=== PATIENT | female | born 2000 | race Caucasian/White ===

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

== ENCOUNTER 2022-10-06 17:42 | Emergency (ER) | payer MEDICAID ==
[~2022-10-06 17:42] MED LIST changes: +HYDR-700 PO; +NAPR-1071 PO
[2022-10-06 18:02] VITALS: BP 125/76
[2022-10-07] MEDS ORDERED: PROP50TA2 (02:22)
[2022-10-12] MEDS ORDERED: CEPH500T PO (07:17)
== END 2022-10-06 18:38 | disposition other institution (70) ==
LOC: EDUNIT# 17:42 → ER 17:44
DX: O26.892 Other specified pregnancy related conditions, second trimester (principal); R10.9 Unspecified abdominal pain; R11.0 Nausea; R19.7 Diarrhea, unspecified; Z3A.18 18 weeks gestation of pregnancy

== ENCOUNTER 2022-10-07 02:09 | Emergency (ER) | payer MEDICAID ==
[~2022-10-07] VITALS: Ht 162.5 cm; Wt 86.2 kg
[2022-10-07] MEDS ORDERED: PROP50TA2 (02:22)
--- NOTE | 2022-10-07 02:39 | ED Abdominal Pain ---
General Chief Complaint: OB < 20 WEEKS Stated Complaint: ABD PAIN/CRAMPS/NAUSEA 18 WKS PREG Nursing Triage Note: LOWER BACK/ABDOMINAL PAIN/CRAMPING, NAUSEA, 18WEEKS . Source of Information: Patient Exam Limitations: No Limitations History of Present Illness Date Seen by Provider: Oct 07, 2022 Time Seen by Provider: 02:24 Initial Comments Patient is a 22-year-old female who presents to the emergency room with a chief complaint of intermittent severe abdominal cramping onset yesterday morning. She is a G3, P2 approximately 19 weeks and 2 days with an EDC of March 02, 2023. She states she has had a normal so far. Over the last 12 to 24 hours she has had this cramping that comes in waves. She states it is worse than any contraction she has felt before. She has not taken any medication for the pain. She denies any recent illnesses. No dysuria, urgency or frequency. She has a clear whitish vaginal discharge that is not unusual for her. She has had 5 or 6 episodes of diarrhea today. She is nauseous currently. Denies any vaginal bleeding. No complications in her other 2 pregnancies. Both were deliveries. She has a history of thyroid disease. Denies smoking, alcohol. Timing/Duration: 12-24 Hours Severity/Quality: Severe, Cramping Location: Generalized Abdomen Radiation: Back Activities at Onset: None Associated Symptoms: Back Pain, Nausea/Vomiting (nausea without vomiting) Allergies and Home Medications Allergies Coded Allergies: No Known Drug Allergies (Unverified , 12/16/15) Patient Home Medication List Home Medication List Reviewed: Yes Propylthiouracil (Propylthiouracil) 50 Mg Tablet, (Reported) Entered as Reported by: RISSA ALLAN on 10/07/22 0222 Last Action: New Order Discontinued Medications Cephalexin (Cephalexin) 500 Mg Tablet, 500 MG PO TID Discontinued Reason: No Longer Taking Prescribed by: TANIKA ELIZALDE on 11/06/21 1937 Last Action: Discontinued Docusate Sodium (Docu Liquid) 50 Mg/5 Ml Liquid, 100 MG PO BID Discontinued Reason: No Longer Taking Prescribed by: GO LUGO on 10/22/21 1252 Last Action: Discontinued Famotidine (Pepcid) 20 Mg Tablet, 20 MG PO BID Discontinued Reason: No Longer Taking Prescribed by: TANIKA ELIZALDE on 11/06/211936 Last Action: Discontinued Hydroxyzine HCl (Hydroxyzine HCl) 25 Mg Tablet, 25 MG PO Q6H PRN for ANXIETY Discontinued Reason: No Longer Taking Prescribed by: ISAMAR PADRON on 12/17/2144 Last Action: Discontinued Ibuprofen (Ibuprofen) 100 Mg/5 Ml Oral.susp, 800 MG PO Q6H Discontinued Reason: No Longer Taking Prescribed by: GO LUGO on 10/22/21 1252 Last Action: Discontinued Naproxen (Naprosyn) 500 Mg Tablet, 500 MG PO BID Discontinued Reason: No Longer Taking Prescribed by: ISAMAR PADRON on 12/17/2144 Last Action: Discontinued Ondansetron (Ondansetron Odt) 4 Mg Tab.rapdis, 4 MG SL Q4H PRN for NAUSEA/VOMITING Discontinued Reason: No Longer Taking Prescribed by: TANIKA ELIZALDE on 11/06/211936 Last Action: Discontinued Oxycodone HCl (Oxycodone HCl) 5 Mg/5 Ml Solution, 10 MG PO Q4H PRN for PAIN-SEE DOSE INSTRUCTIONS Discontinued Reason: No Longer Taking Prescribed by: GO LUGO on 10/22/21 1254 Last Action: Discontinued Gyu065/Iron Fumarate/FA/Dss ( 19 Tablet) 1 Each Tablet, 1 EACH PO DAILY, (Reported) Discontinued Reason: No Longer Taking Entered as Reported by: KRISTI AQUINO on 06/15/17 0647 Last Action: Discontinued Review of Systems Review of Systems Constitutional: see HPI Respiratory: No Symptoms Reported Cardiovascular: No Symptoms Reported Gastrointestinal: Abdominal Pain, Nausea Genitourinary: Discharge ("clear whitish") Musculoskeletal: back pain Skin: no symptoms reported Psychiatric/Neurological: No Symptoms Reported All Other Systems Reviewed Negative Unless Noted: Yes Past Glkrduw-Vmdkgd-Bxgvwv Hx Patient Social History Tobacco Use?: No Substance use?: No Alcohol Use?: No Pt feels they are or have been: No Immunizations Up To Date Tetanus Booster (TDap): Less than 5yrs PED Vaccines UTD: Yes First/Initial COVID19 Vaccinat: NA Seasonal Allergies Seasonal Allergies: No Past Medical History Surgery/Hospitalization HX: HX, OVER REACTIVE THYROID, ANXIETY Surgeries: Yes ( X 1) Section Respiratory: No Cardiac: No Neurological: No Last Menstrual Period: Jun 03, 2022 Reproductive Disorders: No Female Reproductive Disorders: Denies Sexually Transmitted Disease: No HIV/AIDS: No Genitourinary: No Gastrointestinal: No Musculoskeletal: No Endocrine: Yes Hyperthyroidism HEENT: No Cancer: No Psychosocial: Yes Anxiety Integumentary: No Blood Disorders: No Adverse Reaction/Blood Tranf: No Family Medical History No Pertinent Family Hx Physical Exam Vital Signs Vital Signs - First Documented 10/07/22 02:17 Temp 37.9 Pulse 99 Resp 16 B/P (MAP) 127/77 (94) Pulse Ox 99 O2 Delivery Room Air Capillary Refill : Less Than 3 Seconds Height/Weight/BMI Height: 5'4.00" Weight: 169lbs. 0.0oz. 76.378918ot; 32.00 BMI Method:Stated General Appearance: WD/WN, mild distress (due to abdominal pain) HEENT: PERRL/EOMI Respiratory: lungs clear, normal breath sounds, no respiratory distress, no accessory muscle use Cardiovascular: regular rate, rhythm Gastrointestinal: normal bowel sounds, soft, tenderness (mild lower abdominal tenderness to palpation; no rebound; + vol guarding) Extremities: normal range of motion, normal inspection Neurologic/Psychiatric: alert, oriented x 3, other (anxious) Skin: normal color, warm/dry Progress/Results/Core Measures Results/Orders Lab Results Laboratory Tests Test 10/07/22 02:21 10/07/22 02:39 Range/Units Urine Color YELLOW Urine Clarity CLEAR Urine pH 6.0 5-9 Urine Specific [place] 1.015 L 1.016-1.022 Urine Protein NEGATIVE NEGATIVE Urine Glucose (UA) NEGATIVE NEGATIVE Urine Ketones NEGATIVE NEGATIVE Urine Nitrite NEGATIVE NEGATIVE Urine Bilirubin NEGATIVE NEGATIVE Urine Urobilinogen 0.2 < = 1.0 MG/DL Urine Leukocyte Esterase NEGATIVE NEGATIVE Urine RBC (Auto) NEGATIVE NEGATIVE Urine RBC NONE /HPF Urine WBC NONE /HPF Urine Squamous Epithelial Cells 0-2 /HPF Urine Crystals NONE /LPF Urine Bacteria TRACE /HPF Urine Casts NONE /LPF Urine Mucus NEGATIVE /LPF Urine Culture Indicated NO Sodium Level 135 135-145 MMOL/L Potassium Level 3.6 3.6-5.0 MMOL/L Chloride Level 110 H 98-107 MMOL/L Carbon Dioxide Level 18 L 21-32 MMOL/L Anion Gap 7 5-14 MMOL/L Blood Urea Nitrogen 7 7-18 MG/DL Creatinine 0.52 L 0.60-1.30 MG/DL Estimat Glomerular Filtration Rate 136 BUN/Creatinine Ratio 13 Glucose Level 107 H 70-105 MG/DL Calcium Level 8.9 8.5-10.1 MG/DL My Orders Orders - PEYTON JOHNSON MD Ed Iv/Invasive Line Start (10/07/22 02:33) Basic Metabolic Panel (10/07/22 02:33) Ua Culture If Indicated (10/07/22 02:33) Lactated Ringers (Lr 1000 Ml Iv Solution (10/07/22 02:45) Ondansetron Injection (Zofran Injectio (10/07/22 02:45) Acetaminophen Oral Solution (Tylenol Ora (10/07/22 03:15) Rx-Ondansetron Po (Rx-Zofran Po) (10/07/22 03:53) Medications Given in ED Vital Signs/I&O 10/07/22 10/07/22 10/07/22 02:17 03:16 04:01 Temp 37.9 37.9 37.5 Pulse 99 89 Resp 16 16 B/P (MAP) 127/77 (94) 122/79 Pulse Ox 99 100 O2 Delivery Room Air Room Air Blood Pressure Mean: 94 Progress Progress Note #1: Time: 02:36 Progress Note POC bedside U/S shows good FHT and positive movement Progress Note #2: Time: 03:36 Progress Note Patient seen and examined by me. Evaluation today includes physical exam, basic metabolic panel, urinalysis, epwpc-bw-bzff bedside ultrasound to evaluate cardiac activity and motion. Pertinent physical exam findings well-developed well-nourished female mild distress due to ongoing abdominal pain. Abdomen is mildly tender in the suprapubic infraumbilical region. Otherwise soft. Normal bowel sounds. Heart is regular, lungs are clear. No lower extremity edema or calf tenderness. Differential diagnosis based on history and physical exam, premature labor/miscarriage/urinary tract infection/dehydration. Labs independently reviewed and interpreted by me. Basic metabolic panel is actually within normal limits. Urinalysis is negative for any signs of infection or blood. Revcd-zc-waxf ultrasound at the bedside showed normal cardiac activity and motion. Patient is treated with lactated Ringer's and Zofran. She is also given 650 mg of Tylenol liquid. She is completely asymptomatic at discharge. She feels 100% better. I encouraged the patient to drink plenty of fluids. We will give her some ODT Zofran for home. Recommended she call Dr. Palomares's office today and return precautions were given. She verbalized understanding of the plan of care all questions are sought and answ ered. Patient is improved at discharge. Departure Impression Primary Impression: Abdominal pain affecting Additional Impression: 19 weeks gestation of Disposition: HOME, SELF-CARE Condition: Stable Departure-Patient Inst. Decision time for Depature: 03:35 Referrals: [facility] (PCP/Family) Primary Care Physician NATALIA PALOMARES DO Patient Instructions: - The Fifth Month Add. Discharge Instructions: You can take gywa-vdr-rblzvme Tylenol 650 mg every 6 hours as needed for abd ominal cramping/pain. Be sure and drink lots of fluids to stay well-hydrated. Ondansetron 4 mg orally disintegrating tablets, take 1 every 8 hours as needed for nausea. If you develop worsening pain especially with vaginal bleeding please come back to the emergency department for reevaluation. Please call Dr. Palomares's office today and let him know you are in the emergency department and follow-up as directed. Copy Copies To 1: NATALIA PALOMARES DO Copies To 2: INEZ BRITTON KATHRYN M MD Oct 07, 2022 02:39
[2022-10-07] MEDS ORDERED: ONDANSETRON 4 MG/2 ML (SDV) Z0FRAN IVP ONE (02:45)
[2022-10-07] MEDS ORDERED: LACTATED RINGERS 1,000 ML IV SCH (02:45)
[2022-10-07 02:50] LABS: BILIRUBIN,URINE NEGATIVE (NEGATIVE); CLARITY,URINE CLEAR; COLOR,URINE YELLOW; GLUCOSE, URINE (UA) NEGATIVE (NEGATIVE); KETONES,URINE NEGATIVE (NEGATIVE); LEUKOCYTE ESTERASE ,URINE NEGATIVE (NEGATIVE); NITRITE,URINE NEGATIVE (NEGATIVE); PROTEIN,URINE NEGATIVE (NEGATIVE)
[2022-10-07 02:56] LABS: BACTERIA,URINE TRACE /HPF; SQUAMOUS EPITHELIAL CELL,UR 0-2 /HPF
[2022-10-07 03:00] LABS: POTASSIUM 3.6 MMOL/L (3.6-5.0)
[2022-10-07 03:02] LABS: CALCIUM 8.9 MG/DL (8.5-10.1)
[2022-10-07 03:06] LABS: CREATININE SERUM 0.52 MG/DL (0.60-1.30)
[2022-10-07] MEDS ORDERED: APAP 325 MG/10.15 ML LIQ (TYLENOL) UDC PO ONE (03:15)
[2022-10-07] MEDS ORDERED: RX-ONDANSETRON 4 MG ODT (ZOFRAN) PPK #4 PO STA (03:53)
[2022-10-07 04:01] VITALS: BP 122/79
[2022-10-12] MEDS ORDERED: CEPH500T PO (07:17)
== END 2022-10-07 04:01 | disposition home or self-care (01) ==
LOC: EDUNIT# 02:09 → ER 02:11
DX: O26.892 Other specified pregnancy related conditions, second trimester (principal); R10.84 Generalized abdominal pain; Z28.310 Unvaccinated for COVID-19; Z3A.19 19 weeks gestation of pregnancy
CPT/HCPCS: 36415; 80048; 81000

== ENCOUNTER 2022-10-08 11:00 | Emergency (ER) | payer MEDICAID ==
[~2022-10-08 11:00] MED LIST changes: +PROP50TA2
[2022-10-08] MEDS ORDERED: NS IV 1000 ML 1,000 ML IV STA ×2 (11:33→12:41)
--- NOTE | 2022-10-08 11:38 | ED Abdominal Pain ---
General Chief Complaint: Abdominal/GI Problems Stated Complaint: PANIC ATTACK | ABD CRAMPING Nursing Triage Note: PT AMB TO TRIAGE, PT STATES IS ANXIOUS BECAUSE HAVING ABD CRAMPING AND DIARRHEA. PT STATES IS 18 WEEKS . PT WAS SEEN IN ED THIS WEEK FOR SAME C/O. STATES HAS NOT GOTTEN ANY BETTER Source of Information: Patient Exam Limitations: No Limitations History of Present Illness Date Seen by Provider: Oct 08, 2022 Time Seen by Provider: 11:35 Initial Comments Patient is a 22-year-old female who is G3, P2 who presents the ED for severe lower abdominal cramping for the past 3 days. Pain is intermittent. Located in lower abdomen. Intermittent sharp pain without radiation. Nausea without vomiting. She did have diarrhea 3 days ago but that has decreased. Denies any blood or mucousy stool. Denies of any pain with urination frequent urination or vaginal bleeding. She currently follows Dr. Palomares. History of C-sections with prior deliveries. She denies of any vaginal discharge. Patient was seen yesterday had reassuring lab work received a liter of fluid with some improvement. She took a Tylenol yesterday but none today. Currently on prenatals. No complications with her previous . She has a history of thyroid disease. She denies fever, chills, chest pain, headache, dizziness, visual changes, cough, shortness of breath, vaginal discharge, concern for sexual transit infections. Allergies and Home Medications Allergies Coded Allergies: No Known Drug Allergies (Unverified , 12/16/15) Patient Home Medication List Home Medication List Reviewed: Yes Propylthiouracil (Propylthiouracil) 50 Mg Tablet, (Reported) Entered as Reported by: RISSA ALLAN on 10/07/222 Discontinued Medications Cephalexin (Cephalexin) 500 Mg Tablet, 500 MG PO TID Discontinued Reason: No Longer Taking Prescribed by: TANIKA ELIZALDE on 11/06/211936 Docusate Sodium (Docu Liquid) 50 Mg/5 Ml Liquid, 100 MG PO BID Discontinued Reason: No Longer Taking Prescribed by: GO LUGO on 10/22/21 1252 Famotidine (Pepcid) 20 Mg Tablet, 20 MG PO BID Discontinued Reason: No Longer Taking Prescribed by: TANIKA ELIZALDE on 11/06/211936 Hydroxyzine HCl (Hydroxyzine HCl) 25 Mg Tablet, 25 MG PO Q6H PRN for ANXIETY Discontinued Reason: No Longer Taking Prescribed by: ISAMAR PADRON on 12/17/21 0644 Ibuprofen (Ibuprofen) 100 Mg/5 Ml Oral.susp, 800 MG PO Q6H Discontinued Reason: No Longer Taking Prescribed by: GO LUGO on 10/22/21 1252 Naproxen (Naprosyn) 500 Mg Tablet, 500 MG PO BID Discontinued Reason: No Longer Taking Prescribed by: ISAMAR PADRON on 12/17/21 0644 Ondansetron (Ondansetron Odt) 4 Mg Tab.rapdis, 4 MG SL Q4H PRN for NAUSEA/VOMITING Discontinued Reason: No Longer Taking Prescribed by: TANIKA ELIZALDE on 11/06/21 193 Oxycodone HCl (Oxycodone HCl) 5 Mg/5 Ml Solution, 10 MG PO Q4H PRN for PAIN-SEE DOSE INSTRUCTIONS Discontinued Reason: No Longer Taking Prescribed by: GO LUGO on 10/22/21 1254 Oqn164/Iron Fumarate/FA/Dss ( 19 Tablet) 1 Each Tablet, 1 EACH PO DAILY, (Reported) Discontinued Reason: No Longer Taking Entered as Reported by: KRISTI AQUINO on 06/15/17 0647 Review of Systems Review of Systems Constitutional: No chills, No diaphoresis, No dizziness, No fever, No malaise, No weakness EENTM: No Double Vision, No Eye Pain Respiratory: Denies Cough, Denies Shortness of Air, Denies SOA at Rest Cardiovascular: Denies Chest Pain Gastrointestinal: Abdominal Pain, Diarrhea, Nausea; Denies Vomiting Genitourinary: Denies Discharge Musculoskeletal: No back pain, No joint pain, No joint swelling, No muscle pain, No muscle stiffness Skin: No change in color, No change in hair/nails All Other Systems Reviewed Negative Unless Noted: Yes Past Wuctcxf-Yokkxw-Eullgb Hx Patient Social History Tobacco Use?: No Substance use?: No Alcohol Use?: No Pt feels they are or have been: No Immunizations Up To Date Tetanus Booster (TDap): Less than 5yrs PED Vaccines UTD: Yes First/Initial COVID19 Vaccinat: NA Second COVID19 Vaccination Too: NA Third COVID19 Vaccination Date: NA Seasonal Allergies Seasonal Allergies: No Past Medical History Surgery/Hospitalization HX: HX, OVER REACTIVE THYROID, ANXIETY Surgeries: Yes ( X 1) Section Respiratory: No Cardiac: No Neurological: No Expected Date of Delivery: Mar 02, 2023 Reproductive Disorders: No Female Reproductive Disorders: Denies Sexually Transmitted Disease: No HIV/AIDS: No Genitourinary: No Gastrointestinal: No Musculoskeletal: No Endocrine: Yes Hyperthyroidism HEENT: No Cancer: No Psychosocial: Yes Anxiety Integumentary: No Blood Disorders: No Adverse Reaction/Blood Tranf: No Family Medical History No Pertinent Family Hx Physical Exam Vital Signs Vital Signs - First Documented 10/08/22 11:10 Pulse 127 Resp 16 B/P (MAP) 117/70 (86) Pulse Ox 98 Capillary Refill : Less Than 3 Seconds Height/Weight/BMI Height: 5'4.00" Weight: 169lbs. 0.0oz. 76.117196lg; 32.00 BMI Method:Stated General Appearance: WD/WN, no apparent distress HEENT: PERRL/EOMI, normal ENT inspection, TMs normal, pharynx normal Neck: non-tender, full range of motion, supple Respiratory: chest non-tender, lungs clear, normal breath sounds, no respiratory distress, no accessory muscle use Cardiovascular: regular rate, rhythm, no edema, no gallop, no JVD Gastrointestinal: normal bowel sounds, soft, no organomegaly, tenderness (Suprapubic, umbilicus tenderness. 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, no motor/sensory deficits, alert, normal mood/affect, oriented x 3 Skin: normal color Progress/Results/Core Measures Results/Orders Lab Results Laboratory Tests Test 10/08/22 11:30 10/08/22 11:45 Range/Units White Blood Count 8.6 4.3-11.0 10^3/uL Red Blood Count 4.26 3.80-5.11 10^6/uL Hemoglobin 12.6 11.5-16.0 g/dL Hematocrit 37 35-52 % Mean Corpuscular Volume 88 80-99 fL Mean Corpuscular Hemoglobin 30 25-34 pg Mean Corpuscular Hemoglobin Concent 34 32-36 g/dL Red Cell Distribution Width 13.4 10.0-14.5 % Platelet Count 185 130-400 10^3/uL Mean Platelet Volume 12.4 H 9.0-12.2 fL Immature Granulocyte % (Auto) 0 % Neutrophils (%) (Auto) 73 42-75 % Lymphocytes (%) (Auto) 16 12-44 % Monocytes (%) (Auto) 10 0-12 % Eosinophils (%) (Auto) 1 0-10 % Basophils (%) (Auto) 0 0-10 % Neutrophils # (Auto) 6.3 1.8-7.8 10^3/uL Lymphocytes # (Auto) 1.4 1.0-4.0 10^3/uL Monocytes # (Auto) 0.8 0.0-1.0 10^3/uL Eosinophils # (Auto) 0.0 0.0-0.3 10^3/uL Basophils # (Auto) 0.0 0.0-0.1 10^3/uL Immature Granulocyte # (Auto) 0.0 0.0-0.1 10^3/uL Sodium Level 139 135-145 MMOL/L Potassium Level 4.1 3.6-5.0 MMOL/L Chloride Level 110 H 98-107 MMOL/L Carbon Dioxide Level 20 L 21-32 MMOL/L Anion Gap 9 5-14 MMOL/L Blood Urea Nitrogen 8 7-18 MG/DL Creatinine 0.62 0.60-1.30 MG/DL Estimat Glomerular Filtration Rate 131 BUN/Creatinine Ratio 13 Glucose Level 105 70-105 MG/DL Calcium Level 8.8 8.5-10.1 MG/DL Corrected Calcium 9.2 8.5-10.1 MG/DL Total Bilirubin 0.4 0.1-1.0 MG/DL Aspartate Amino Transf (AST/SGOT) 15 5-34 U/L Alanine Aminotransferase (ALT/SGPT) 10 0-55 U/L Alkaline Phosphatase 87 40-136 U/L Total Protein 6.9 6.4-8.2 GM/DL Albumin 3.5 3.2-4.5 GM/DL Lipase 18 8-78 U/L Human Chorionic Gonadotropin, Quant 80754 H <5 MIU/ML Urine Color YELLOW Urine Clarity CLEAR Urine pH 6.5 5-9 Urine Specific [place] 1.025 H 1.016-1.022 Urine Protein 2+ H NEGATIVE Urine Glucose (UA) NEGATIVE NEGATIVE Urine Ketones TRACE H NEGATIVE Urine Nitrite NEGATIVE NEGATIVE Urine Bilirubin 1+ H NEGATIVE Urine Urobilinogen 2.0 < = 1.0 MG/DL Urine Leukocyte Esterase NEGATIVE NEGATIVE Urine RBC (Auto) NEGATIVE NEGATIVE Urine RBC NONE /HPF Urine WBC 2-5 /HPF Urine Squamous Epithelial Cells 2-5 /HPF Urine Crystals NONE /LPF Urine Bacteria MODERATE H /HPF Urine Casts NONE /LPF Urine Mucus MODERATE H /LPF Urine Culture Indicated YES My Orders Orders - LISA MAJANO Cbc With Automated Diff (10/08/22 11:33) Comprehensive Metabolic Panel (10/08/22 11:33) Hcg,Quantitative (10/08/22 11:33) Ua Culture If Indicated (10/08/22 11:33) Ns Iv 1000 Ml (Sodium Chloride 0.9%) (10/08/22 11:33) Lipase (10/08/22 11:33) Acetaminophen Tablet/Caplet (Tylenol T (10/08/22 11:45) Limited [id number] (10/08/22 11:33) Urine Culture (10/08/22 11:45) Ns Iv 1000 Ml (Sodium Chloride 0.9%) (10/08/22 12:41) Vital Signs/I&O 10/08/22 11:10 Pulse 127 Resp 16 B/P (MAP) 117/70 (86) Pulse Ox 98 Blood Pressure Mean: 86 Departure Communication (PCP) Reviewed previous ER visits, H&P, lab testing. Differential diagnosis of gastr oenteritis, round ligament pain, premature labor. Patient is a 22-year-old female who is concern for lower abdominal cramping and diarrhea. Diarrhea and cramping started 3 days ago. Diarrhea is starting to subside. Denies any bloody mucousy stool. No urinary symptoms or vaginal bleeding. Currently follows Dr. Palomares. She was seen here yesterday reassuring lab work received fluid. She was discharged felt a little better but continued having abdominal cramping. Bedside ultrasound was unremarkable at that time yesterday. Patient vital signs stable on arrival. She is afebrile. She is not hypertensive. Denies history of diabetes. No visual changes or headache. CBC, CMP, lipase, urinalysis and started on a liter of fluid. CBC, CMP grossly unremarkable. Normal lipase. Urinalysis without evidence of infection. She does appear dry. She did receive a second liter of fluid. BNP 20,000. She did receive Tylenol with improvement abdominal cramping. Formal ultrasound was ordered which showed a single live intrauterine is in breech position. Placenta is anterior position there is no previa. heart rate 156 bpm. Otherwise grossly unremarkable. Reassured patient. She is afebrile with normal white blood count, I do not suspect surgical abdomen. Reassessed the abdomen without any localized tenderness. She is more comfortable at this time. Discussed potential etiologies such as round ligament pain, GI infection with the cramping and diarrhea. She has no flank tenderness. No strong evidence of hematuria in her urine suggesting stone. No right lower quadrant or right upper quadrant tenderness suggesting appendicitis or cholecystitis. Recommend clear liquids. Continue with Tylenol. 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 Patient denies any vaginal discharge. Not concern for STD. Impression Primary Impression: Abdominal pain during Disposition: 01 HOME, SELF-CARE Condition: Stable Departure-Patient Inst. Decision time for Depature: 12:42 Referrals: [facility] (PCP/Family) Primary Care Physician NATALIA PALOMARES DO Patient Instructions: Stomach Pain in Early LISA MAJANO Oct 08, 2022 11:38
[2022-10-08 11:40] LABS: BASOPHILS % (AUTO) 0 % (0-10); EOSINOPHILS % (AUTO) 1 % (0-10); HEMATOCRIT 37 % (35-52); HEMOGLOBIN 12.6 g/dL (11.5-16.0); LYMPHOCYTES # (AUTO) 1.4 10^3/uL (1.0-4.0); LYMPHOCYTES % (AUTO) 16 % (12-44); MEAN CORPUSCULAR HEMOGLOBIN 30 pg (25-34); MEAN CORPUSCULAR HGB CONC 34 g/dL (32-36); MEAN CORPUSCULAR VOLUME 88 fL (80-99); MEAN PLATELET VOLUME 12.4 fL (9.0-12.2); MONOCYTES # (AUTO) 0.8 10^3/uL (0.0-1.0); MONOCYTES % (AUTO) 10 % (0-12); NEUTROPHILS # (AUTO) 6.3 10^3/uL (1.8-7.8); NEUTROPHILS % (AUTO) 73 % (42-75); PLATELET COUNT 185 10^3/uL (130-400); WHITE BLOOD COUNT 8.6 10^3/uL (4.3-11.0)
[2022-10-08] MEDS: ACETAMINOPHEN 325 MG TABLET PO ONE ×2 (11:41→11:44)
[2022-10-08 11:42] LABS: ALBUMIN 3.5 GM/DL (3.2-4.5); POTASSIUM 4.1 MMOL/L (3.6-5.0)
[2022-10-08 11:43] LABS: CALCIUM 8.8 MG/DL (8.5-10.1)
[2022-10-08 11:44] LABS: TOTAL PROTEIN 6.9 GM/DL (6.4-8.2)
[2022-10-08 11:46] LABS: BILIRUBIN,TOTAL 0.4 MG/DL (0.1-1.0)
[2022-10-08 11:48] LABS: CREATININE SERUM 0.62 MG/DL (0.60-1.30)
[2022-10-08 11:56] LABS: CLARITY,URINE CLEAR; COLOR,URINE YELLOW; GLUCOSE, URINE (UA) NEGATIVE (NEGATIVE); KETONES,URINE TRACE (NEGATIVE); LEUKOCYTE ESTERASE ,URINE NEGATIVE (NEGATIVE); NITRITE,URINE NEGATIVE (NEGATIVE); PH,URINE 6.5 (5-9); PROTEIN,URINE 2+ (NEGATIVE)
[2022-10-08 12:11] LABS: BACTERIA,URINE MODERATE /HPF
[2022-10-08 12:12] LABS: BILIRUBIN,URINE 1+ (NEGATIVE)
--- NOTE | 2022-10-08 12:35 | Diagnostic Imaging Report ---
US LIMITED [id number] INDICATION: Pelvic pain during COMPARISON: None available. TECHNIQUE: Transabdominal sonographic imaging of the gravid uterus FINDINGS: Single live intrauterine is in breech presentation. Placenta is anterior position and there is no previa. heart rate is 156 bpm. The ULISES is normal at 12.3 cm. The cervix measures 4.8 cm in length. biometric data was not obtained on this exam. Maternal adnexa were not imaged. IMPRESSION: Single live intrauterine . Dictated by: Dictated on workstation # [id number]
[2022-10-08 13:27] VITALS: BP 117/70
[2022-10-12] MEDS ORDERED: CEPH500T PO (07:17)
== END 2022-10-08 13:28 | disposition home or self-care (01) ==
LOC: EDUNIT# 11:00 → ER 11:02
DX: O26.892 Other specified pregnancy related conditions, second trimester (principal); R10.33 Periumbilical pain; R19.7 Diarrhea, unspecified; Z3A.18 18 weeks gestation of pregnancy
CPT/HCPCS: 36415; 76815; 80053; 81000; 83690; 84702; 85025; 87077; 87088

== ENCOUNTER → 2022-10-18 | Outpatient (CLI) | payer MEDICAID ==
--- NOTE | 2022-10-18 17:17 | Diagnostic Imaging Report ---
INDICATION: Anatomy survey. Supervision of normal . TECHNIQUE: Multiple real-time grayscale images were obtained over the gravid uterus. COMPARISON: 10/08/2022. FINDINGS: A single live intrauterine gestation is present in cephalic presentation. Measurements provided below correspond with an estimated gestational age of 19 weeks 0 days and RASHI of 03/14/2023. heart rate is 149 BPM. ULISES is 10.3 cm. The placenta is anterior and not low lying. The cervix is closed and measures 4.9 cm in length. The kidneys, bladder, stomach, brain, four-chamber heart, three-vessel cord, spine, and cord insertion are visualized and have a normal appearance. Views of the bilateral adnexa demonstrate no acute abnormalities. Biometrical measurements are as follows: Biparietal 4.23 cm, age 18 weeks 6 days. Head circumference 16.31 cm, age 19 weeks 1 days. Abdominal circumference 13.78 cm, age 19 weeks 2 days. Femur length 2.81 cm, age 18 weeks 5 days. Sonographic estimate age: 19 weeks 0 days. Sonographic estimated date of delivery: 03/14/2023. Estimated Weight: 265 gm (+/- 39 gm). LMP percentile: 11%. heart rate: 149 beats per minute. number: 1 of 1. IMPRESSION: 1. Single live intrauterine gestation measuring 19 weeks 0 days with an estimated due date of 03/14/2023. These are within range with the clinical dates. 2. No anatomic abnormalities are identified on this exam. Recommend continued follow-up as indicated. Dictated by: Dictated on workstation # [id number]
== END ==
LOC: RAD 14:41
PROVIDERS: ATTEND Nurse Practitioner Women's Health
DX: Z34.92 Encounter for supervision of normal pregnancy, unspecified, second trimester (principal); Z3A.19 19 weeks gestation of pregnancy
CPT/HCPCS: 76805

== ENCOUNTER 2023-02-23 05:26 | Outpatient (CLI) | payer MEDICAID ==
[~2023-02-23] VITALS: Ht 160 cm; Wt 93.2 kg
[2023-02-23] MEDS ORDERED: PNV-9 PO (16:17)
[2023-02-23] MEDS ORDERED: METH5TAB95 PO (16:17)
[2023-03-02] MEDS ORDERED: IBUP-844 PO (07:20)
[2023-03-02] MEDS ORDERED: DOCU100C37 PO (07:20)
[2023-03-02] MEDS ORDERED: ACHD5005 PO (07:20)
[2023-03-03] MEDS ORDERED: IBP100U5 PO (08:34)
[2023-03-03] MEDS ORDERED: HYDR15SO6 PO (08:34)
[2023-03-03] MEDS ORDERED: FERR220S8 PO ×2 (08:35→08:59)
== END 2023-02-23 16:35 | disposition home or self-care (01) ==
LOC: PREOP 05:26
PROVIDERS: ATTEND Obstetrics & Gynecology
DX: Z01.818 Encounter for other preprocedural examination (principal)

== ENCOUNTER 2023-03-02 05:44 | Inpatient (IN) | payer MEDICAID ==
[~2023-03-02] VITALS: Ht 160 cm; Wt 94.3 kg
[2023-03-02] VITALS (9 sets, daily range): BP systolic 110–140; BP diastolic 45–79
[~2023-03-02 05:44] MED LIST changes: +METH5TAB95 PO; +PNV-9 PO
--- OUTSIDE RECORDS SUMMARY | 2023-03-02 05:47 | XMS REPORT ---
Author Author [facility] ter of [facility] Address Unknown Phone Unavailable Care Team Providers Care Recruiting Coordinator Name Role Phone KERI CULVER Unavailable PROBLEMS Type Condition ICD9-CM Code [id number] Code Onset Dates Condition Status W/U Status Risk SNOMED Code Notes Problem Separation anxiety F93.0 confirmed 909288231 Problem ADHD (attention deficit hyperactivity disorder), combined type F90.2 confirmed 45430018 Problem Seasonal allergies J30.2 confirmed 937515476 Problem Thyroid nodule E04.1 confirmed 348259783 Problem DMDD (disruptive mood dysregulation disorder) F34.81 confirmed 623046788 Problem Hyperthyroidi sm E05.90 confirmed 09514415 Problem Irregular periods N92.6 confirmed 07502449 Problem 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 confirmed 501106098 Problem JORDAN (generalized anxiety disorder) F41.1 confirmed 68982750 Problem Mild episode of recurrent major depressive disorder F33.0 confirmed 141457952 Problem Spotting N92.0 confirmed 9126066 ALLERGIES No Known Allergies ENCOUNTERS from 2002 to 2022-09-13 Encounter Location Date Provider Diagnosis [facility] [address] [facility] [id number] [address] Sep, KERI CULVER IMMUNIZATIONS Vaccine Route Administration Date Status PRIVATE TDAP (BOOSTRIX) IM Intramuscular Mar 19, 2015 Administered SOCIAL HISTORY Sex Assigned At : Social History Observation Description Sex Assigned At Unknown Alcohol Screen (Audit-C) Question Answer Notes Did you have a drink containing alcohol in the p ast year? No Points 0 Interpretation Negative PHQ2 Question Answer Notes In the last 2 weeks, how oft en have you had little interest or pleasure in doing things? Not at all In the last 2 weeks, how oft en have you been feeling down, depressed, or hopeless? Not at all Total PHQ2 Score 0 REASON FOR REFERRAL No Information MEDICATIONS Medication SIG (Take, Route, Frequency, Duration) Notes Start Date End Date Status methIMAzole 10 MG 1 1/2 tablets Orally Once a day 20mg Active Lidocaine 5 % 1 patch remove after 12 hours Externally Once a day for 5 days Jan, Active Nitrofurantoin Monohyd Macro 100 MG 1 capsule with food Orally every 12 hrs for 5 days Jan, Active Blood Pressure Monitor - as directed Oct, Active REASON FOR VISIT *Requests return call MEDICAL (GENERAL) HISTORY Type Description Date Medical History hx of MRSA Medical History Blue baby - cord criss und her neck. It took a few mintues to get her to cry Medical History anxiety Surgical History I-D MRSA abcess Surgical History 07/21/2017 Hospitalization History post childbirtrh 07/2017 MENTAL STATUS No Information PLAN OF TREATMENT Medication Medication Name Sig Start Date Stop Date Lidocaine 5 % 1 patch remove after 12 hours Externally Once a day for 5 days Jan, Insurance Providers Payer Name Payer Address Payer Phone Insured Name Patient Relationship to Insured Coverage Start Date Coverage End Date Subscriber Number Group Number [employer] [address] [facility] [address] Maki Ricardo Self - patient is the insured [id number]
--- OUTSIDE RECORDS SUMMARY | 2023-03-02 05:47 | XMS REPORT ---
Author Author [facility] ter of [facility] ter [facility] Address Unknown Phone Unavailable Care Team Providers Care Button Pusher Name Role Phone ELVIS CULVERY Unavailable PROBLEMS Type Condition ICD9-CM Code [id number] Code Onset Dates Condition Status W/U Status Risk SNOMED Code Notes Problem Separation anxiety F93.0 confirmed [id number] Problem ADHD (attention deficit hyperactivity disorder), combined type F90.2 confirmed 28999038 Problem Seasonal allergies J30.2 confirmed 402578005 Problem Thyroid nodule E04.1 confirmed 113417319 Problem DMDD (disruptive mood dysregulation disorder) F34.81 confirmed 559811152 Problem Hyperthyroidi sm E05.90 confirmed 77020974 Problem Irregular periods N92.6 confirmed 47187386 Problem 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 [id number] [address] Sep, KERI CULVER IMMUNIZATIONS Vaccine Route Administration [...] as directed Oct, Active REASON FOR VISIT request call back MEDICAL (GENERAL) HISTORY Type Description Date Medical [...] Number Group Number [employer] [address] [facility] [phone] Maki Ricardo Self - patient is the insured [id number]
--- OUTSIDE RECORDS SUMMARY | 2023-03-02 05:47 | XMS REPORT ---
Author Author [facility] ter [facility] ter [facility] Address Unknown Phone Unavailable Care Team Providers Care Polymerization Oven Tender Name Role Phone BARON MONTES DE OCA Unavailable PROBLEMS Type Condition ICD9-CM Code [id number] Code Onset Dates Condition Status W/U Status Risk SNOMED Code Notes Problem Separation anxiety F93.0 confirmed [id number] Problem ADHD (attention deficit hyperactivity disorder), combined type F90.2 confirmed 60508237 Problem Seasonal allergies J30.2 confirmed 834504171 Problem Thyroid nodule E04.1 confirmed 986723096 Problem DMDD (disruptive mood dysregulation disorder) F34.81 confirmed 053522905 Problem Hyperthyroidi sm E05.90 confirmed 55126533 Problem Irregular periods N92.6 confirmed 92722300 Problem 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 confirmed 843318492 Problem JORDAN (generalized anxiety disorder) F41.1 confirmed 19633857 Problem Mild episode of recurrent major depressive disorder F33.0 confirmed 119887658 Problem Spotting N92.0 confirmed 7857151 ALLERGIES No Known Allergies ENCOUNTERS from 2002 to 2022-10-08 Encounter Location Date Provider Diagnosis [facility] [address] [facility] [id number] [address] Oct, BARON MONTES DE OCA Lip ulceration K13.0 IMMUNIZATIONS Vaccine Route Administration Date Status PRIVATE [...] Score 0 REASON FOR REFERRAL No Information VITAL SIGNS Height 65 in Oct, Weight 157 lbs Oct, Weight-kg 71.21 kg Oct, Temperature 97.8 degrees Fahrenheit Oct, Heart Rate 84 bpm Oct, Respiratory Rate 18 bpm Oct, Oximetry 98 % Oct, BMI 26.12 kg/m2 Oct, Blood pressure systolic 124 mmHg Oct, Blood pressure diastolic 68 mmHg Oct, MEDICATIONS Medication SIG (Take, Route, Frequency, Duration) [...] as directed Oct, Active REASON FOR VISIT Bump on lip- pt stated it came up last night--mattie LEWIS MEDICAL (GENERAL) HISTORY Type Description Date Medical History hx of MRSA Medical History Blue baby - cord criss und her neck. It took a few mintues to get her to cry Medical History anxiety Surgical History I-D MRSA abcess Surgical History 07/21/2017 Hospitalization History post childbirtrh 07/2017 MENTAL STATUS No Information ASSESSMENTS Encounter Date Diagnosis Assessment Notes Treatment Notes Treatment Clinical Notes Oct, Lip ulceration (ICD-10 - K13.0) This appears to be an ulceration from biting the likp. Warm salt water gargles may alleviate any discomfort associated with this, , Cellulitis: Care Instructions material was published Oct, Other Medications as directed, supportive care and monitoring, rest as able, push fluids to maintain hydration. Office visit it not improving.Patient verbalized understanding of above instructions. The patient was seen and the documentation was completed by Gypsy Scott and I concur with the documentation of the visit. PLAN OF TREATMENT Medication Medication Name Sig Start Date Stop Date Lidocaine 5 % 1 patch remove after 12 hours Externally Once a day for 5 days Jan, Treatment Notes Assessment Notes Clinical Notes Lip ulceration This appears to be a n ulceration from biting the likp. Warm salt water gargles may alleviate any discomfort associated with this, , Cellulitis: Care Instructions material was published Next Appt Details if not improving with PCP or reg follow up Reason: Insurance Providers Payer Name Payer Address Payer Phone Insured Name Patient Relationship to Insured Coverage Start Date Coverage End Date Subscriber Number Group Number [employer] [address] [facility] [phone] Maki Ricardo Self - patient is the insured [id number]
[2023-03-02] MEDS ORDERED: LACTATED RINGERS 1,000 ML 1,000 ML IV PRN ×2 (06:15)
[2023-03-02] MEDS ORDERED: FAMOTIDINE INJ 20MG/2ML VIAL IV ONE (06:15)
[2023-03-02] MEDS ORDERED: METOCLOPRAMIDE INJ 10 MG/2 ML IV ONE (06:15)
[2023-03-02] MEDS ORDERED: ceFAZolin INJECTION 2,000 MG in NS (IVPB) 50 ML 50 ML IV ONE (06:15)
[2023-03-02] MEDS ORDERED: CITRIC ACID/SODIUM CITRATE ORAL SOLN 30 ML PO ONE (06:15)
[2023-03-02 06:50] LABS: BASOPHILS % (AUTO) 0 % (0-10); EOSINOPHILS % (AUTO) 0 % (0-10); HEMATOCRIT 35 % (35-52); HEMOGLOBIN 10.9 g/dL (11.5-16.0); LYMPHOCYTES # (AUTO) 1.8 10^3/uL (1.0-4.0); LYMPHOCYTES % (AUTO) 16 % (12-44); MEAN CORPUSCULAR HEMOGLOBIN 25 pg (25-34); MEAN CORPUSCULAR HGB CONC 31 g/dL (32-36); MEAN CORPUSCULAR VOLUME 80 fL (80-99); MONOCYTES # (AUTO) 0.8 10^3/uL (0.0-1.0); MONOCYTES % (AUTO) 8 % (0-12); NEUTROPHILS # (AUTO) 8.4 10^3/uL (1.8-7.8); NEUTROPHILS % (AUTO) 75 % (42-75); PLATELET COUNT 229 10^3/uL (130-400); WHITE BLOOD COUNT 11.2 10^3/uL (4.3-11.0)
[2023-03-02 07:01] LABS: ALBUMIN 3.5 GM/DL (3.2-4.5); POTASSIUM 3.6 MMOL/L (3.6-5.0)
[2023-03-02 07:03] LABS: CALCIUM 8.5 MG/DL (8.5-10.1)
[2023-03-02 07:04] LABS: TOTAL PROTEIN 7.3 GM/DL (6.4-8.2)
[2023-03-02 07:06] LABS: BILIRUBIN,TOTAL 0.6 MG/DL (0.1-1.0)
[2023-03-02 07:08] LABS: CREATININE SERUM 0.54 MG/DL (0.60-1.30)
[2023-03-02] MEDS ORDERED: fentaNYL INJECTION 100 MCG/2 ML VIAL ONE (07:09)
[2023-03-02] MEDS ORDERED: OXYTOCIN DRIP PRE-MIX 1,000 ML IV ONE (07:09)
--- NOTE | 2023-03-02 07:12 | History & Physical-OB ---
OB - Chief Complaint & HPI Date/Time Date of Admission: Date of Admission: Mar 02, 2023 at 05:44 Date seen by a Provider: Mar 02, 2023 Time Seen by a Provider: 07:00 Chief Complaint/History OB-Reason for Admission/Chief: Section Hx : 3 Hx Para: 2 Expected Date of Delivery: Mar 09, 2023 Gestational Age in Weeks: 39 Gestational Age in Days: 0 Admission Nurse Assessment Rev: Yes History of Labs O pos Antibody neg RI RPR NR HBsAg NR HIV NR GC neg GBS pos (urine cx) Allergies and Home Medications Allergies Coded Allergies: No Known Drug Allergies (Unverified , 02/23/23) Patient Home Medication List Home Medication List Reviewed: Yes Methimazole (Methimazole) 5 Mg Tablet, 15 MG PO DAILY, (Reported) Entered as Reported by: Rossana Delgado on 02/23/231616 Last Action: Reviewed Pnv 119/Iron Fum/Folic Acid ( 19 Tablet) 29 Mg Iron-1 Mg Tablet, 1 EACH PO DAILY, (Reported) Entered as Reported by: Rossana Delgado on 02/23/231616 Last Action: Reviewed Discontinued Medications Cephalexin (Cephalexin) 500 Mg Tablet, 500 MG PO TID Discontinued Reason: No Longer Taking Prescribed by: TANIKA ELIZALDE on 10/12/22 0717 Propylthiouracil (Propylthiouracil) 50 Mg Tablet, (Reported) Discontinued Reason: No Longer Taking Entered as Reported by: RISSA ALLAN on 10/07/22 0222 OB - History Hx of Present Care: Yes Ultrasounds: Normal mid trimester US Obstetrical Complications: None Medical Complications: None Delivery History Hx Blood Disorders: No Adverse Rxn to Tranfusion: No Patient Past Medical History nc Social History/Family History 2nd Hand Smoke Exposure: No Immunizations Influenza Vaccine Up-to-Date: No; Not Current First/Initial COVID19 Vaccine: NA Second COVID19 Vaccination: NA Third COVID19 Vaccination Date: NA Hepatitis A: No Hepatitis B: No Tetanus Booster (TDap): Less than 5yrs OB - Admission Exam Physical Exam Vitals: Vital Signs 03/02/23 06:12 Temp 36.6 Pulse 103 Resp 18 B/P (MAP) 140/79 (99) Pulse Ox 99 O2 Delivery Room Air HEENT: NCAT Heart: Rhythm Normal Lungs: Clear Abdomen: Gravid Heart Rate: 130's Accelerations: Accelerations Present Decelerations: No Decelerations Monitor Tech Variability: Average (6-25) Contractions on Admission: >10 Minutes Apart Intensity: Mild Labs Laboratory Tests Test 03/02/23 06:35 Range/Units White Blood Count 11.2 H 4.3-11.0 10^3/uL Red Blood Count 4.34 3.80-5.11 10^6/uL Hemoglobin 10.9 L 11.5-16.0 g/dL Hematocrit 35 35-52 % Mean Corpuscular Volume 80 80-99 fL Mean Corpuscular Hemoglobin 25 25-34 pg Mean Corpuscular Hemoglobin Concent 31 L 32-36 g/dL Red Cell Distribution Width 14.3 10.0-14.5 % Platelet Count 229 130-400 10^3/uL Mean Platelet Volume 12.0 9.0-12.2 fL Immature Granulocyte % (Auto) 0 % Neutrophils (%) (Auto) 75 42-75 % Lymphocytes (%) (Auto) 16 12-44 % Monocytes (%) (Auto) 8 0-12 % Eosinophils (%) (Auto) 0 0-10 % Basophils (%) (Auto) 0 0-10 % Neutrophils # (Auto) 8.4 H 1.8-7.8 10^3/uL Lymphocytes # (Auto) 1.8 1.0-4.0 10^3/uL Monocytes # (Auto) 0.8 0.0-1.0 10^3/uL Eosinophils # (Auto) 0.0 0.0-0.3 10^3/uL Basophils # (Auto) 0.0 0.0-0.1 10^3/uL Immature Granulocyte # (Auto) 0.1 0.0-0.1 10^3/uL Sodium Level 135 135-145 MMOL/L Potassium Level 3.6 3.6-5.0 MMOL/L Chloride Level 108 H 98-107 MMOL/L Carbon Dioxide Level 16 L 21-32 MMOL/L Anion Gap 11 5-14 MMOL/L Glucose Level 97 70-105 MG/DL Calcium Level 8.5 8.5-10.1 MG/DL Corrected Calcium 8.9 8.5-10.1 MG/DL Total Bilirubin 0.6 0.1-1.0 MG/DL Total Protein 7.3 6.4-8.2 GM/DL Albumin 3.5 3.2-4.5 GM/DL OB - Assessment/Plan/Diagnosis Assessment Assessment: section Admission Dx 22 yo @ 39 weeks Previous GBS pos urine Admission Status: Inpatient Order (span 2 midnights) Reason for Inpatient Admission: Repeat at 39 weeks Plan Plan: Section NATALIA MONZON DO Mar 02, 2023 07:11
[2023-03-02] MEDS ORDERED: OXYTOCIN DRIP PRE-MIX 500 ML IV SCH (07:15)
[2023-03-02] MEDS ORDERED: MEASLES, MUMPS, RUBELLA VACCINE (MMR) SC SCH (07:15)
[2023-03-02] MEDS ORDERED: Tetanus/Diphtheria/Pertussis (Acell) ADULT Vaccine 0.5 ML IM SCH (07:15)
[2023-03-02] MEDS ORDERED: NALOXONE 0.4 MG/ML 1 ML VIAL IV PRN (07:15)
[2023-03-02] MEDS ORDERED: ONDANSETRON INJECTION 4 MG/2 ML (SDV) IVP PRN (07:15)
[2023-03-02] MEDS ORDERED: HYDROcodone/ACETAMINOPHEN 5 MG/325 MG TABLET PO PRN (07:15)
--- NOTE | 2023-03-02 07:19 | Discharge Inst-Women's Service ---
Discharge Inst-Women's Serv Depart Medication/Instructions New, Converted or Re-Newed RX: Transmitted to Pharmacy Final Diagnosis POD 2 RLTCS Problems Reviewed?: Yes Consults/Follow Up Additional Follow Up: Yes Orders/Referrals Dr. Palomares in 7-10 days and in 6 weeks Activity Activity: Activity as Tolerated Driving Instructions: No Driving for 1 Week NO SMOKING: NO SMOKING Nothing Inside Vagina: No Douching, No [place], No Tampons Diet Discharge Diet: No Restrictions Symptoms to Report to : Bleeding Excessive, Pain Increased, Fever Over 101 Degrees F, Vaginal Bleeding Increase, Questions/Concerns For Any Problems or Questions: Contact Your Physician Skin/Wound Care Infection Signs and Symptoms: Increased Redness, Foul Odor of Wound, Increased Drainage, Skin Itchy or Has a Rash, Increased Swelling, Temperature Above 101 F Operative Area Clean and Dry: Keep Incision Clean/Dry Stitches/Sterling/Dermabond: Dermabond, Care of Stitches Bathing Instructions: NATALIA Wood DO Mar 02, 2023 07:19
[2023-03-02] MEDS ORDERED: DOCU100C37 PO (07:20)
[2023-03-02] MEDS ORDERED: IBUP-844 PO (07:20)
[2023-03-02] MEDS ORDERED: ACHD5005 PO (07:20)
[2023-03-02] MEDS ORDERED: PHENYLEPHRINE 100 MCG/ML 10 ML (ANESTHESIA) SYR ONE (07:28)
[2023-03-02] MEDS ORDERED: BUPIVACAINE 0.5% 30 ML VIAL ONE (07:47)
[2023-03-02] MEDS ORDERED: ONDANSETRON INJECTION 4 MG/2 ML (SDV) ONE (08:08)
[2023-03-02] MEDS: KETOROLAC INJ 30 MG/ML VIAL IV SCH ×3 (09:45→23:09)
[2023-03-02] MEDS: DOCUSATE SODIUM 100 MG CAPSULE PO SCH ×2 (09:45→19:56)
[2023-03-02] MEDS ORDERED: CATHETER FLUSH 10 ML SYR IV SCH (14:00)
[2023-03-02] MEDS: SIMETHICONE 80 MG CHEWABLE TABLET PO SCH ×2 (14:15→19:32)
[2023-03-02] MEDS: HYDROcodone/APAP 7.5MG-325 MG/15 ML ORAL SOLN PO PRN ×2 (14:16→19:32)
--- NOTE | 2023-03-02 16:31 | OPERATIVE REPORT ---
PREOPERATIVE DIAGNOSES: 1. A 22-year-old at 39 weeks' gestation. 2. Previous section. POSTOPERATIVE DIAGNOSES: 1. A 22-year-old at 39 weeks' gestation. 2. Previous section. PROCEDURE: Repeat low transverse section. SURGEON: Xavi Monzon DO CD REACTOR OPERATOR: Gosia Carter DNP, was necessary for manipulation and retraction throughout the procedure. ANESTHESIA: Spinal. ESTIMATED BLOOD LOSS: 500 mL URINE OUTPUT: 75 mL clear at the end of the procedure. FLUIDS: 2000 mL lactated Ringer's solution. FINDINGS: A live male weighing 7 pounds 15 ounces, Apgars of 8 and 9. Grossly normal appearing uterus, bilateral fallopian tubes and ovaries. SPECIMEN SENT: None. INDICATIONS FOR PROCEDURE: This 22-year-old female is the patient who had sought care in my office, which was uncomplicated with the exception of hypothyroidism and previous . We discussed proceeding with repeat . Risks of procedure discussed with the patient in detail including risk of bleeding, infection, damage to surrounding structures including but not limited to bowel, bladder, ureter, kidneys, possible need for operation, postoperative complications that may occur, recovery timeframe, risk from anesthesia and even . After everything was discussed with the patient in detail, consent was obtained, the patient was taken to the operating room. OPERATIVE DESCRIPTION IN DETAIL: Once in the operating room, spinal analgesia was found to be adequate, was placed in supine position with leftward tilt, prepped and draped in normal sterile fashion. A timeout was performed. Anesthesia was tested. I then make a Pfannenstiel skin incision through previous existing scar using knife and carried down to underlying fascia using Bovie cautery. The fascial incision extended laterally using Bovie cautery. The superior aspect of fascial incision was then grasped with Angel clamps, tented up and dissected off the underlying rectus muscles. The inferior aspect of fascial incision was then grasped with Angel clamps, tented up and dissected off the underlying rectus muscles. Rectus muscles were dissected down the midline using sharp dissection, which exposed the peritoneum, which I entered bluntly, extended using blunt traction. Emanuel ring retractor was placed in the peritoneal incision, which offers excellent lateral sidewall retraction. I identified lower uterine segment, was found to be thinned out. I make a low transverse incision to the vesicouterine peritoneum and bluntly dissected off the lower uterine segment, creating a bladder flap. I then proceeded with my myotomy until membranes were visualized, at which point I extended the uterine incision laterally and superiorly using bandage scissors. Amniotomy was performed in the process of doing this, clear fluid was noted. The infant was found in vertex presentation with gentle fundal pressure, the 's head was elevated up the incision where it was delivered through the incision. The nares and oropharynx were bulb suctioned. Anterior and posterior shoulders were delivered. The was brought to the operative field where cords were doubly clamped and cut and was handed off to waiting nurses in attendance. Cord blood was collected. Three-vessel cord intact placenta was delivered spontaneously thereafter. IV Pitocin was initiated to facilitate uterine contraction. Uterine fundus confirmed by manual massage. The uterus was then exteriorized and cleared of all endometrial clots and debris. I then proceeded with closing the uterine incision using 0 Vicryl suture in a running locked fashion. Second layer of imbricating 0 Monocryl was placed. Excellent hemostasis was noted after doing this. I then placed the uterus back in the pelvis and copiously irrigated the pelvis using normal saline. Once again, there was no active bleeding noted from any of my dissection planes. I placed Interceed antiadhesive over my low transverse incision. I removed the Emanuel ring retractor and then proceeded to close the peritoneum using 3-0 Vicryl suture in a running fashion. The rectus muscles were reapproximated using 3-0 Vicryl suture in interrupted fashion. Fascia was reapproximated using 0 Vicryl suture in a running fashion. The subcutaneous tissue was reapproximated using 3-0 plain interrupted subcutaneous stitch and the skin reapproximated using 4-0 Monocryl running subcuticular. Dermabond was applied to incision, sterile dressing with adhesive white tape. The patient tolerated the procedure well and was taken to recovery area in stable condition. Lap and sponge count was correct at the end of the procedure. Instrument counts correct as well. Two grams of Ancef were given preoperatively for infection prophylaxis. Job ID: [id number] DocumentID: [id number] Dictated Date: 03/02/2023 08:12:16 Health Policy Nurse Date: 03/02/2023 16:24:00 Dictated By: XAVI MONZON DO
[2023-03-03] MEDS: HYDROcodone/APAP 7.5MG-325 MG/15 ML ORAL SOLN PO PRN ×3 (01:29→17:00)
[2023-03-03 01:33] VITALS: BP 129/74
[2023-03-03 05:53] LABS: BASOPHILS % (AUTO) 0 % (0-10); EOSINOPHILS # (AUTO) 0.2 10^3/uL (0.0-0.3); EOSINOPHILS % (AUTO) 1 % (0-10); HEMATOCRIT 32 % (35-52); LYMPHOCYTES # (AUTO) 1.8 10^3/uL (1.0-4.0); LYMPHOCYTES % (AUTO) 14 % (12-44); MEAN CORPUSCULAR HEMOGLOBIN 25 pg (25-34); MEAN CORPUSCULAR HGB CONC 31 g/dL (32-36); MEAN CORPUSCULAR VOLUME 81 fL (80-99); MEAN PLATELET VOLUME 11.9 fL (9.0-12.2); MONOCYTES # (AUTO) 1.1 10^3/uL (0.0-1.0); MONOCYTES % (AUTO) 8 % (0-12); NEUTROPHILS # (AUTO) 9.8 10^3/uL (1.8-7.8); NEUTROPHILS % (AUTO) 76 % (42-75); PLATELET COUNT 196 10^3/uL (130-400); WHITE BLOOD COUNT 12.9 10^3/uL (4.3-11.0)
[2023-03-03] MEDS: KETOROLAC INJ 30 MG/ML VIAL IV SCH ×2 (05:58→05:59)
[2023-03-03] MEDS: IBUPROFEN ORAL SUSPENSION 100MG/5ML UDC PO PRN ×3 (06:06→18:19)
[2023-03-03 06:14] VITALS: BP 129/72
[2023-03-03] MEDS ORDERED: IBUPROFEN 600 MG TABLET PO SCH (07:30)
--- NOTE | 2023-03-03 08:10 | Postpartum Progress Note ---
Note Note Day # 1 Subjective: Patient is without complaints. Ambulating, voiding. Tolerating a regular diet without nausea or vomiting. Normal lochia. Pain is well controlled with oral pain medications. Objective: Physical Exam: General - Alert and oriented, no apparent distress Abdomen - Soft, appropriately tender to palpation, non-distended, fundus firm at umbilicus Extremities - no edema, negative Esteban's bilaterally Incision- c/d/i Assessment: POD 1 RLTCS Acute blood loss anemia Plan: Routine care. Encourage breast feeding. Encourage ambulation. Ferrous sulfate supplementation. Plan for discharge tomorrow Vitals - Labs Vital Signs - I&O Vital Signs Date Time Temp Pulse Resp B/P (MAP) Pulse Ox O2 Delivery O2 Flow Rate FiO2 03/03/23 06:14 73 20 129/72 (91) Room Air 03/03/23 01:33 77 24 129/74 (92) Room Air 03/02/23 20:39 36.6 78 20 122/75 (91) 96 Room Air 03/02/23 17:10 36.5 70 18 134/78 (96) 99 Room Air 03/02/23 13:00 37.5 87 18 130/63 (85) 99 Room Air 03/02/23 09:46 36.8 92 18 110/64 (79) 100 Room Air 03/02/23 09:10 36.4 20 122/66 (84) 100 Room Air 03/02/23 09:09 Room Air 03/02/23 08:55 Room Air 03/02/23 08:55 36.3 20 124/71 (88) 98 Room Air 03/02/23 08:40 36.2 20 131/56 (81) 99 Room Air 03/02/23 08:40 Room Air 03/02/23 08:25 36.2 20 119/45 (69) 100 Room Air 03/02/23 08:24 Room Air I & O 03/03/23 07:00 Intake Total 100 ml Output Total 775 ml Balance -675 ml Labs Laboratory Tests 03/03/23 05:45: White Blood Count 12.9H, Red Blood Count 3.93, Hemoglobin 10.0L, Hematocrit 32L, Mean Corpuscular Volume 81, Mean Corpuscular Hemoglobin 25, Mean Corpuscular Hemoglobin Concent 31L, Red Cell Distribution Width 14.5, Platelet Count 196, Mean Platelet Volume 11.9, Immature Granulocyte % (Auto) 0, Neutrophils (%) (Auto) 76H, Lymphocytes (%) (Auto) 14, Monocytes (%) (Auto) 8, Eosinophils (%) (Auto) 1, Basophils (%) (Auto) 0, Neutrophils # (Auto) 9.8H, Lymphocytes # (Auto) 1.8, Monocytes # (Auto) 1.1H, Eosinophils # (Auto) 0.2, Basophils # (Auto) 0.0, Immature Granulocyte # (Auto) 0.1 NATALIA MONZON DO Mar 03, 2023 08:09
[2023-03-03] MEDS ORDERED: IBP100U5 PO (08:34)
[2023-03-03] MEDS ORDERED: HYDR15SO6 PO (08:34)
[2023-03-03] MEDS ORDERED: FERR220S8 PO ×2 (08:35→08:59)
[2023-03-03] MEDS: DOCUSATE SODIUM 100 MG CAPSULE PO SCH ×2 (09:00→22:30)
[2023-03-03 10:29] VITALS: BP 114/78
[2023-03-03] MEDS: SIMETHICONE 80 MG CHEWABLE TABLET PO SCH ×3 (10:33→22:08)
--- NOTE | 2023-03-03 16:05 | Anesthesia-Regional Post-Op ---
Regional Patient Condition Mental Status: Alert, Oriented x3 Circulation: Same as Pre-Op Headache: Absent Sensation: Full Recovery Motor Block: Absent Post Op Complications Complications None Follow Up Care/Instructions Patient Instructions None needed. Anesthesia/Patient Condition Patient is doing well. She does C/O some non-specific chest discomfort and right shoulder pain. She has stable vital signs, no apparent adverse anesthesia problems. No complications reported per nursing. WYATT HINOJOSA DO Mar 03, 2023 16:05
[2023-03-03 17:00] VITALS: BP 122/71
[2023-03-03] MEDS: FERROUS SULFATE ORAL LIQUID 44 MG/ML PO SCH (18:20)
[2023-03-03 22:07] VITALS: BP 131/80
[2023-03-04] MEDS: HYDROcodone/APAP 7.5MG-325 MG/15 ML ORAL SOLN PO PRN ×2 (00:27→08:35)
[2023-03-04 04:15] VITALS: BP 132/73
[2023-03-04] MEDS: IBUPROFEN ORAL SUSPENSION 100MG/5ML UDC PO PRN ×2 (04:33→10:15)
--- NOTE | 2023-03-04 07:14 | Postpartum Progress Note ---
Note Note Day # 2 Subjective: Patient is without complaints. Ambulating, voiding. Tolerating a regular diet without nausea or vomiting. Normal lochia. Pain is well controlled with oral pain medications. Objective: Physical Exam: General - Alert and oriented, no apparent distress Abdomen - Soft, appropriately tender to palpation, non-distended, fundus firm at umbilicus Extremities - no edema, negative Esteban's bilaterally Incision- c/d/i Assessment: POD 2 RLTCS Acute blood loss anemia Plan: Routine care. Encourage breast feeding. Encourage ambulation. Ferrous sulfate supplementation. Plan for discharge today Vitals - Labs Vital Signs - I&O Vital Signs Date Time Temp Pulse Resp B/P (MAP) Pulse Ox O2 Delivery O2 Flow Rate FiO2 03/04/23 04:15 36.4 73 16 132/73 (92) 100 Room Air 03/03/23 22:07 36.6 76 18 131/80 (97) 100 Room Air 03/03/23 17:00 36.5 85 18 122/71 (88) 99 Room Air 03/03/23 10:29 36.1 75 20 114/78 (90) 99 Room Air NATALIA MONZON DO Mar 04, 2023 07:14
[2023-03-04] MEDS: SIMETHICONE 80 MG CHEWABLE TABLET PO SCH (08:35)
[2023-03-04] MEDS: FERROUS SULFATE ORAL LIQUID 44 MG/ML PO SCH (10:15)
[2023-03-04 10:22] VITALS: BP 136/74
== END 2023-03-04 12:05 | disposition home or self-care (01) | DRG 787 ==
LOC: LDRP 05:44
PROVIDERS: ADMIT Obstetrics & Gynecology; ATTEND Obstetrics & Gynecology
PROC: 10D00Z1 Extraction of Products of Conception, Low, Open Approach (ICD-10-PCS; principal; 2023-03-02 07:19)
DX: O34.211 Maternal care for low transverse scar from previous cesarean delivery (principal); D62 Acute posthemorrhagic anemia; Z3A.39 39 weeks gestation of pregnancy; Z37.0 Single live birth; O99.824 Streptococcus B carrier state complicating childbirth; O90.81 Anemia of the puerperium; O99.284 Endocrine, nutritional and metabolic diseases complicating childbirth; E05.90 Thyrotoxicosis, unspecified without thyrotoxic crisis or storm; O99.344 Other mental disorders complicating childbirth; F41.9 Anxiety disorder, unspecified
CPT/HCPCS: 36415; 80053; 85025; 86850; 86900; 86901; 94664

== ENCOUNTER 2023-03-08 12:33 | Emergency (ER) | payer MEDICAID ==
[~2023-03-08] VITALS: Ht 160 cm; Wt 90.7 kg
[~2023-03-08 12:33] MED LIST changes: +ACHD5005 PO; +DOCU100C37 PO; +FERR220S8 PO; +HYDR15SO6 PO; +IBUP-844 PO
--- NOTE | 2023-03-08 13:06 | ED Headache ---
General Chief Complaint: Cough/Cold/Flu Symptoms Stated Complaint: SINUS PRESSURE | HEADACHE/MIGRAINE | POST C-SECT Nursing Triage Note: pt ambulates to triage with c/o migraine to rt side of head, worse with light and sound. pt reports she's had migraines before but "not this bad". sinus congestion/cough x1 day without improvement from ibupofren/tylenol. pt reports being in hospital for on 03/02. reports son has runny nose but otherwise asymptomatic. no reports of fever/chills. Source: patient Exam Limitations: no limitations History of Present Illness Date Seen by Provider: Mar 08, 2023 Time Seen by Provider: 13:04 Initial Comments Patient is a 22-year-old female who presents to the ED for headache. Head pain started on the right side of her head feels like pressure. Pain has migrated to the left and now more diffuse. Symptoms started yesterday. Pain has been fairly constant. Rates pain 10 out of 10. History of headaches but denies having similar type headache. Denies worst of her life. She does report some nasal congestion and a cough for the past day. Has been taking ibuprofen and Tylenol without much improvement of headache. She does report some blurry vision bilateral without any unilateral weakness, sensory changes, vomiting, visual loss, neck pain, fever, chills, abdominal pain, vaginal bleeding, pain with urination, chest pain or shortness of breath. Patient had a on March 02. Had a spinal tap. She reports mild spotting but that has improved. Not currently breast-feeding. Allergies and Home Medications Allergies Coded Allergies: No Known Drug Allergies (Unverified , 02/23/23) Patient Home Medication List Home Medication List Reviewed: Yes Docusate Sodium (Docusate Sodium) 100 Mg Capsule, 100 MG PO BID PRN for CONSTIPATION-1ST LINE Prescribed by: NATALIA MONZON on 03/02/23 0720 Ferrous Sulfate (Ferrous Sulfate) 220 Mg (44 Mg Iron)/5 Ml Elixir, 300 MG PO BID WITH MEALS Prescribed by: NATALIA MONZON on 03/03/23 0859 Hydrocodone Bit/Acetaminophen (Lortab 7.5-325 Mg/15 Ml Udc) 15 Ml Solution, 15 ML PO Q6HR PRN for PAIN-MODERATE (5-7) Prescribed by: NATALIA MONZON on 03/03/23 0834 Hydrocodone/Acetaminophen (Hydrocodone-Acetamin 5-325 mg) 5 Mg-325 Mg Tablet, 1- 2 EA PO Q6HR PRN for PAIN-MODERATE (5-7) Prescribed by: NATALIA MONZON on 03/02/23719 Ibuprofen (Ibu) 600 Mg Tablet, 600 MG PO Q6H Prescribed by: NATALIA MONZON on 03/02/23719 Ibuprofen (Ibuprofen) 100 Mg/5 Ml Oral.susp, 600 MG PO Q6H PRN for PAIN-MILD (1- 4) Prescribed by: NATALIA MONZON on 03/03/2334 Methimazole (Methimazole) 5 Mg Tablet, 15 MG PO DAILY, (Reported) Entered as Reported by: Rossana Delgado on 02/23/231616 Pnv 119/Iron Fum/Folic Acid ( 19 Tablet) 29 Mg Iron-1 Mg Tablet, 1 EACH PO DAILY, (Reported) Entered as Reported by: Rossana Delgado on 02/23/231616 Review of Systems Review of Systems Constitutional: No chills, No diaphoresis, No fever, No malaise, No weakness Eyes: Blurred Vision; Denies Drainage, Denies Decreased Acuity Ears, Nose, Mouth, Throat: denies ear pain, denies ear discharge Respiratory: No cough, No dyspnea on exertion Cardiovascular: No chest pain Gastrointestinal: No abdominal pain, No diarrhea, No dysphagia, No nausea, No vomiting Genitourinary: No decreased output, No discharge, No dysuria, No frequency Musculoskeletal: No back pain, No joint pain Skin: No change in color, No change in hair/nails All Other Systems Reviewed Negative Unless Noted: Yes Past Tbgacge-Lgacyq-Kjsyqu Hx Patient Social History Tobacco Use?: No Substance use?: No Alcohol Use?: No Immunizations Up To Date Tetanus Booster (TDap): Less than 5yrs PED Vaccines UTD: Yes Influenza Vaccine Up-to-Date: No; Not Current First/Initial COVID19 Vaccinat: NA Second COVID19 Vaccination Too: NA Third COVID19 Vaccination Date: NA Seasonal Allergies Seasonal Allergies: No Past Medical History Surgery/Hospitalization HX: HX, OVERACTIVE THYROID, ANXIETY Surgeries: Yes ( X 2) Section Respiratory: Yes (HX COVID) Cardiac: Yes Palpitations Neurological: No Reproductive Disorders: No Female Reproductive Disorders: Denies Sexually Transmitted Disease: No HIV/AIDS: No Genitourinary: No Gastrointestinal: No Musculoskeletal: No Endocrine: Yes Hyperthyroidism HEENT: No Loss of Vision: Denies Hearing Impairment: Denies Cancer: No Psychosocial: Yes Anxiety Integumentary: No Blood Disorders: No Adverse Reaction/Blood Tranf: No Family Medical History No Pertinent Family Hx Physical Exam Vital Signs Vital Signs - First Documented 03/08/23 12:41 Temp 36.8 Pulse 59 Resp 18 B/P (MAP) 136/85 (102) Pulse Ox 99 O2 Delivery Room Air Capillary Refill : Less Than 3 Seconds Height, Weight, BMI Height: 5'4.00" Weight: 169lbs. 0.0oz. [id number]; 35.00 BMI Method:Stated General Appearance: WD/WN, no apparent distress HEENT: PERRL/EOMI, normal ENT inspection, TMs normal, pharynx normal Neck: non-tender, full range of motion, supple, normal inspection Cardiovascular: regular rate, rhythm, no edema, no gallop, no JVD Respiratory: chest non-tender, lungs clear, normal breath sounds, no respir atory distress, no accessory muscle use Gastrointestinal: normal bowel sounds, non tender, soft, no organomegaly Back: normal inspection, no CVA tenderness, no vertebral tenderness Extremities: normal range of motion, non-tender, normal inspection, no pedal edema Crainal Nerves: normal hearing, normal speech, PERRL Coordination/Gait: normal finger to nose, normal gait Motor/Sensory: no motor deficit, no sensory deficit Skin: normal color, warm/dry Progress/Results/Core Measures Results/Orders Lab Results Laboratory Tests Test 03/08/23 12:46 03/08/23 13:15 Range/Units Influenza Type A (RT-PCR) Not Detected Not Detecte Influenza Type B (RT-PCR) Not Detected Not Detecte SARS-CoV-2 RNA (RT-PCR) Not Detected Not Detecte White Blood Count 9.1 4.3-11.0 10^3/uL Red Blood Count 4.08 3.80-5.11 10^6/uL Hemoglobin 10.3 L 11.5-16.0 g/dL Hematocrit 33 L 35-52 % Mean Corpuscular Volume 81 80-99 fL Mean Corpuscular Hemoglobin 25 25-34 pg Mean Corpuscular Hemoglobin Concent 31 L 32-36 g/dL Red Cell Distribution Width 14.8 H 10.0-14.5 % Platelet Count 289 130-400 10^3/uL Mean Platelet Volume 11.6 9.0-12.2 fL Immature Granulocyte % (Auto) 0 % Neutrophils (%) (Auto) 67 42-75 % Lymphocytes (%) (Auto) 22 12-44 % Monocytes (%) (Auto) 8 0-12 % Eosinophils (%) (Auto) 3 0-10 % Basophils (%) (Auto) 1 0-10 % Neutrophils # (Auto) 6.2 1.8-7.8 X 10^3 Lymphocytes # (Auto) 2.0 1.0-4.0 X 10^3 Monocytes # (Auto) 0.7 0.0-1.0 X 10^3 Eosinophils # (Auto) 0.2 0.0-0.3 10^3/uL Basophils # (Auto) 0.1 0.0-0.1 10^3/uL Immature Granulocyte # (Auto) 0.0 0.0-0.1 10^3/uL Sodium Level 139 135-145 MMOL/L Potassium Level 4.0 3.6-5.0 MMOL/L Chloride Level 109 H 98-107 MMOL/L Carbon Dioxide Level 23 21-32 MMOL/L Anion Gap 7 5-14 MMOL/L Blood Urea Nitrogen 13 7-18 MG/DL Creatinine 0.61 0.60-1.30 MG/DL Estimat Glomerular Filtration Rate 131 BUN/Creatinine Ratio 21 Glucose Level 89 70-105 MG/DL Calcium Level 8.6 8.5-10.1 MG/DL Corrected Calcium 8.9 8.5-10.1 MG/DL Total Bilirubin 0.3 0.1-1.0 MG/DL Aspartate Amino Transf (AST/SGOT) 13 5-34 U/L Alanine Aminotransferase (ALT/SGPT) 13 0-55 U/L Alkaline Phosphatase 189 H 40-136 U/L Total Protein 7.3 6.4-8.2 GM/DL Albumin 3.6 3.2-4.5 GM/DL My Orders Orders - LISA MAJANO Covid 19 Inhouse Test (03/08/23 12:41) Influenza A And B By Pcr (11/21/23 12:41) Ct Head Wo (03/08/23 13:01) Cbc And Automated Diff (03/08/23 13:01) Comprehensive Metabolic Panel (03/08/23 13:01) Vital Signs/I&O 03/08/23 03/08/23 12:41 14:14 Temp 36.8 Pulse 59 81 Resp 18 B/P (MAP) 136/85 (102) 132/84 Pulse Ox 99 98 O2 Delivery Room Air Room Air Blood Pressure Mean: 102 Departure Communication (PCP) Patient is a 22-year-old female who is 6 days who presents ED with a headache. Headache started yesterday started on the right side migrated to the left. No history of migraines. Denies worse of her life but rates pain 10 out of 10. No improvement with ibuprofen. No vomiting but does report blurry vision bilateral. No unilateral muscle weakness or sensory changes. She did have a spinal block on feb 26 from a c section. Vital signs stable. No history of diabetes or hypertension. Refused migraine cocktail. She does have nasal congestion and a cough that has developed as well which would be concern for viral in nature. CBC's, CMP, CT scan of the head was ordered. Other etiologies would be intracranial hemorrhage, thrombosis. Unlikely secondary to her symptoms but would be considered in the differential. CBC, CMP was grossly unremarkable. Hemoglobin 10.3 stable. Normal white blood count. No meningeal signs. COVID influenza were negative. Normal kidney function. She was not hypertensive. CT scan the head was negative for acute abnormality. She does have associated photophobia and phonophobia which makes me believe this is more of a migraine. She does have a history of headaches but never been diagnosed with migraines. She states she will continue with Tylenol ibuprofen and Benadryl as needed for at home. She does not want any medication at this time. She is currently not breast-feeding. She does report some mild vaginal spotting but states that has improved. No specific abdominal pain at this time. Denies chest pain short of breath. Continue monitoring at symptoms at home. If pain w orsens, unilateral weakness or sensory changes to return back to ED. Follow-up with PCP 1 to 2 days for reevaluation. Impression Primary Impression: Headache Disposition: HOME, SELF-CARE Condition: Stable Departure-Patient Inst. Decision time for Depature: 13:47 Referrals: NATALIA MONZON DO (PCP/Family) Primary Care Physician Patient Instructions: Headache, Adult Add. Discharge Instructions: Recommend continue with Tylenol and ibuprofen Benadryl at home. If any worsening hip pain, unilateral weakness or sensory changes to return back to ED. All discharge instructions reviewed with patient and/or family. Voiced understanding. LISA MAJANO Mar 08, 2023 13:06
[2023-03-08 13:22] LABS: BASOPHILS # (AUTO) 0.1 10^3/uL (0.0-0.1); BASOPHILS % (AUTO) 1 % (0-10); EOSINOPHILS # (AUTO) 0.2 10^3/uL (0.0-0.3); EOSINOPHILS % (AUTO) 3 % (0-10); HEMATOCRIT 33 % (35-52); HEMOGLOBIN 10.3 g/dL (11.5-16.0); LYMPHOCYTES % (AUTO) 22 % (12-44); MEAN CORPUSCULAR HEMOGLOBIN 25 pg (25-34); MEAN CORPUSCULAR HGB CONC 31 g/dL (32-36); MEAN CORPUSCULAR VOLUME 81 fL (80-99); MEAN PLATELET VOLUME 11.6 fL (9.0-12.2); MONOCYTES # (AUTO) 0.7 X 10^3 (0.0-1.0); MONOCYTES % (AUTO) 8 % (0-12); NEUTROPHILS # (AUTO) 6.2 X 10^3 (1.8-7.8); NEUTROPHILS % (AUTO) 67 % (42-75); PLATELET COUNT 289 10^3/uL (130-400); WHITE BLOOD COUNT 9.1 10^3/uL (4.3-11.0)
[2023-03-08 13:32] LABS: ALBUMIN 3.6 GM/DL (3.2-4.5)
[2023-03-08 13:34] LABS: CALCIUM 8.6 MG/DL (8.5-10.1)
[2023-03-08 13:35] LABS: TOTAL PROTEIN 7.3 GM/DL (6.4-8.2)
[2023-03-08 13:37] LABS: BILIRUBIN,TOTAL 0.3 MG/DL (0.1-1.0)
[2023-03-08 13:38] LABS: CREATININE SERUM 0.61 MG/DL (0.60-1.30)
--- NOTE | 2023-03-08 14:01 | Diagnostic Imaging Report ---
INDICATION: Post headache. TECHNIQUE: Routine noncontrast-enhanced axial images were obtained from the skull base to the vertex. Auto Exposure Controls were utilized during the CT exam to meet ALARA standards for radiation dose reduction COMPARISON: 06/01/2020. FINDINGS: The ventricles and cortical sulci are normal in size and contour. There is no midline shift or mass-effect. No acute intra-axial hemorrhage is seen. There are no abnormal areas of increased or decreased density to suggest acute hemorrhage or edema. No extra-axial masses or collections are present. The bony calvarium is intact. The visualized paranasal sinuses are unremarkable. The mastoid air cells are clear. IMPRESSION: No acute intracranial abnormality. No CT evidence of mass, acute infarct, or intracranial hemorrhage. Dictated by: Dictated on workstation # [id number]
[2023-03-08 14:14] VITALS: BP 132/84
== END 2023-03-08 14:07 | disposition home or self-care (01) ==
LOC: EDUNIT# 12:33 → ER 12:35
DX: O89.4 Spinal and epidural anesthesia-induced headache during the puerperium (principal); R05.9 Cough, unspecified; R09.81 Nasal congestion; H53.149 Visual discomfort, unspecified; Z86.16 Personal history of COVID-19; Z28.310 Unvaccinated for COVID-19
CPT/HCPCS: 36415; 70450; 80053; 85025; 87636